=== PATIENT | female | born 1990 | race African-American/Black ===

== ENCOUNTER 2022-04-18 14:49 | Outpatient (CLI) | payer OTHER ==
[2022-04-18 17:37] LABS: Hemoglobin 10.7 g/dL (12.0-15.5); Mean Corpuscular HGB CONC 33.3 g/dL (32.0-36.0); Mean Corpuscular Volume 89.9 fl (81.6-98.3); Mean Platelet Volume 12.3 fl (7.4-10.4); Platelet Count 232 10x3/uL (150-450); RBC Distribution Width 13.6 % (11.5-14.5); Red Blood Cell (RBC) Count 3.57 10x6/uL (3.90-5.03); White Blood Cell (WBC) Count 9.4 10x3/uL (3.5-10.5)
[2022-04-18 17:46] LABS: Hep B Surf Ag Non-Reactive S/CO (NonReactive); Syphilis Antibody Nonreactive (Nonreactive); Syphilis Antibody Index 0.06 S/CO (<1.00 Non-Reactive)
[2022-04-18 17:51] LABS: HBSAg Index 0.18 S/CO (0-0.99)
[2022-04-18 18:12] LABS: SARS-CoV-2 NAA Rapid Test Not Detected (NotDetected)
== END 2022-04-18 14:50 | disposition home or self-care (01) ==
LOC: CSHLAB 14:49
PROVIDERS: ATTEND Family Medicine
DX: Z01.812 Encounter for preprocedural laboratory examination (principal); Z20.822 Contact with and (suspected) exposure to COVID-19
CPT/HCPCS: 85027; 86780; 86850; 86900; 86901; 87340; U0002

== ENCOUNTER 2022-04-19 15:07 | Inpatient (IN) | payer OTHER ==
[2022-04-19] MEDS ORDERED: hydrALAZINE 20 MG/ML VIAL SLOW IVP PRN ×2 (15:27→21:55)
[2022-04-19] MEDS ORDERED: Bicitra 30 ML UDCUP PO PRN (15:27)
[2022-04-19] MEDS ORDERED: Lactated Ringer's 1,000 ML IV SCH (15:27)
[2022-04-19] MEDS ORDERED: Ondansetron PF 4 MG/2 ML Vial IVP PRN ×3 (15:27→21:55)
[2022-04-19] MEDS ORDERED: Famotidine/PF 20 mg/2ml Vial SLOW IVP PRN (15:27)
[2022-04-19] MEDS ORDERED: Promethazine HCl 25 MG/ML VIAL IM PRN ×3 (15:27→21:55)
[2022-04-19] MEDS ORDERED: CEFAZOLIN 3 GM in Sodium Chloride 0.9% 100 ML IVPB SCH (15:30)
[2022-04-19 16:18] VITALS: BMI 44.4
[2022-04-19] MEDS ORDERED: Carboprost 250 MCG/ML AMP ONE (16:34)
[2022-04-19] MEDS ORDERED: Methylergonovine 0.2 MG/ML VIAL ONE (16:34)
[2022-04-19] MEDS ORDERED: Ondansetron PF 4 MG/2 ML Vial ONE (16:54)
[2022-04-19] MEDS ORDERED: Dexamethasone 4 mg/ml Vial ONE (16:54)
[2022-04-19] MEDS ORDERED: Fentanyl 100 MCG/2 ML VIAL ONE (16:54)
[2022-04-19] MEDS ORDERED: Oxytocin 10 UNITS/ML VIAL ONE (16:54)
[2022-04-19] MEDS ORDERED: Phenylephrine 10 MG/ML VIAL ONE (16:54)
[2022-04-19] MEDS ORDERED: Morphine PF 10 MG/10 ML VIAL ONE (16:54)
[2022-04-19] MEDS ORDERED: Promethazine HCl 25 MG SUPP PR PRN (17:08)
[2022-04-19] MEDS ORDERED: Ondansetron HCl/PF 4 MG/2 ML Vial IVP PRN (17:08)
[2022-04-19] MEDS ORDERED: Naloxone HCl 0.4 mg/ml Vial IV PRN (17:08)
[2022-04-19] MEDS ORDERED: Naloxone HCl 0.4 mg/ml Vial IVP PRN ×2 (17:08)
[2022-04-19] MEDS ORDERED: Meperidine HCl/PF 25 MG/ML VIAL SLOW IVP PRN (17:08)
[2022-04-19] MEDS ORDERED: Moisturizing Cream (Eucerin) 113 GM JAR TOP PRN (17:08)
[2022-04-19] MEDS ORDERED: Fentanyl 100 MCG/2 ML VIAL SLOW IVP PRN (17:08)
[2022-04-19] MEDS ORDERED: diphenhydrAMINE 50 MG/ML VIAL IVP PRN (17:08)
[2022-04-19] MEDS ORDERED: Communication Order-Pharmacy FS SCH ×2 (17:15→22:15)
[2022-04-19 18:08] LABS: pH (Cord, venous) 7.002 (7.250-7.350)
[2022-04-19] MEDS ORDERED: Midazolam HCl 2 mg/2 ml Vial ONE ×2 (18:26→18:43)
[2022-04-19] MEDS ORDERED: Ketamine 50 MG/ML (10ML VIAL) ONE (18:40)
[2022-04-19] MEDS ORDERED: Tranexamic Acid 1,000 MG/10 ML VIAL ONE ×2 (18:54)
[2022-04-19] MEDS ORDERED: Diphenoxylate HCl/Atropine Tablet PO SCH ×2 (20:17→20:30)
[2022-04-19] MEDS ORDERED: NS w/ Oxytocin 30 units 500 ML IV SCH (21:55)
[2022-04-19] MEDS ORDERED: Lanolin Ointment 7 GM TUBE TOP PRN (21:55)
[2022-04-19] MEDS ORDERED: diphenhydrAMINE 25 MG CAP PO PRN (21:55)
[2022-04-19] MEDS ORDERED: Bisacodyl 10 MG SUPP PR PRN (21:55)
[2022-04-19] MEDS ORDERED: Boostrix 0.5 ML (Tdap) VIAL IM ONE (21:55)
[2022-04-19] MEDS ORDERED: Simethicone Chewable 80 MG TAB PO PRN (21:55)
[2022-04-19] MEDS ORDERED: Ferrous Sulfate 325 MG TAB PO SCH (22:15)
[2022-04-19] MEDS ORDERED: Docusate 100 MG CAP PO SCH (22:15)
[2022-04-19] MEDS: Ketorolac Tromethamine 30 MG/ML VIAL IVP SCH (23:35)
[2022-04-20 04:23] LABS: Mean Corpuscular HGB CONC 34.6 g/dL (32.0-36.0); Mean Corpuscular Hemoglobin 30.1 pg (27.0-33.0); Mean Corpuscular Volume 87.1 fl (81.6-98.3); Mean Platelet Volume 11.9 fl (7.4-10.4); Platelet Count 239 10x3/uL (150-450); RBC Distribution Width 13.2 % (11.5-14.5); Red Blood Cell (RBC) Count 3.65 10x6/uL (3.90-5.03); White Blood Cell (WBC) Count 18.2 10x3/uL (3.5-10.5)
[2022-04-20] MEDS ORDERED: HYDROcodone/Acetaminophen 5/325 mg Tablet PO PRN (05:15)
[2022-04-20] MEDS ORDERED: Meperidine HCl/PF 25 MG/ML VIAL IM PRN (05:15)
[2022-04-20] MEDS: Ketorolac Tromethamine 30 MG/ML VIAL IVP SCH ×3 (05:50→14:03)
[2022-04-20] MEDS: Prenatal Vitamin 1 TAB PO SCH (07:56)
[2022-04-20] MEDS: Ferrous Sulfate 325 MG TAB PO SCH (07:56)
[2022-04-20] MEDS: HYDROcodone/Acetaminophen 5/325 mg Tablet PO PRN ×4 (07:57→20:47)
[2022-04-20] MEDS: Docusate 100 MG CAP PO SCH ×2 (07:57→20:47)
[2022-04-20] MEDS: Ibuprofen 800 MG TAB PO SCH (22:01)
[2022-04-21] MEDS: HYDROcodone/Acetaminophen 5/325 mg Tablet PO PRN ×6 (00:46→22:49)
[2022-04-21] MEDS: Ferrous Sulfate 325 MG TAB PO SCH ×3 (05:49→19:30)
[2022-04-21] MEDS: Levothyroxine Sodium 100 MCG TAB PO SCH (05:52)
[2022-04-21] MEDS: Ibuprofen 800 MG TAB PO SCH ×3 (05:52→21:16)
[2022-04-21] MEDS: Docusate 100 MG CAP PO SCH ×2 (09:21→21:17)
[2022-04-21] MEDS: Prenatal Vitamin 1 TAB PO SCH (09:21)
[2022-04-22] MEDS: HYDROcodone/Acetaminophen 5/325 mg Tablet PO PRN ×3 (03:23→11:51)
[2022-04-22] MEDS: Ibuprofen 800 MG TAB PO SCH (04:59)
[2022-04-22] MEDS: Levothyroxine Sodium 100 MCG TAB PO SCH (07:45)
[2022-04-22] MEDS: Ferrous Sulfate 325 MG TAB PO SCH (07:45)
[2022-04-22] MEDS: Prenatal Vitamin 1 TAB PO SCH (07:45)
[2022-04-22] MEDS: Docusate 100 MG CAP PO SCH (07:45)
[2022-04-22 08:18] VITALS: BP 134/93; TEMP 97.8
== END 2022-04-22 11:55 | disposition home or self-care (01) | DRG 788 ==
LOC: CSHLD 15:07 → CSHPP 21:27
PROVIDERS: ADMIT Family Medicine; ATTEND Family Medicine
PROC: 10D00Z1 Extraction of Products of Conception, Low, Open Approach (ICD-10-PCS; principal; 2022-04-19)
DX: O34.211 Maternal care for low transverse scar from previous cesarean delivery (principal); Z3A.39 39 weeks gestation of pregnancy; Z37.0 Single live birth; Z20.822 Contact with and (suspected) exposure to COVID-19; E66.01 Morbid (severe) obesity due to excess calories; O99.214 Obesity complicating childbirth; N73.6 Female pelvic peritoneal adhesions (postinfective); O99.892 Other specified diseases and conditions complicating childbirth
CPT/HCPCS: 36415; 51702; 82805; 85027; J0690; J1100; J1885; J2250; J2274; J2370; J2405; J2590; J3010; J3490; J7120; S0028